=== PATIENT | female | born 1985 | race African-American/Black ===

== ENCOUNTER 2017-01-26 23:59 | Emergency (ER) | payer OTHER ==
[~2017-01-26 23:59] MED LIST: BACTRIM DS TABL1 TA1 PO; CIPRO PO; CLEOCIN PO; DARVOCET-N 1001 TAB PO; DIFLUCAN PO; FLEXERIL PO; FLEXERIL10 M1 PO; IBUPROFEN800 MG PO; K-DUR20 ME1 PO; KETOPROFEN PO; LEVAQUIN PO; LORTAB 5/500 TA1 TA1 PO; ORUDIS75 M1 DOB; PENCICLOVIR 1% TOP; ROBITUSSIN A-C-S1 ML PO; RONDEC-DM ORAL30 ML PO; VOLTAREN75 MG PO; ZANTAC PO; ZITHROMAX PO; ZITHROMAX1 G/PKT PO; ZOVIRAX800 MG PO
[2017-01-27 01:44] LABS: URINE SOURCE CLEAN CATCH
[2017-01-27 01:49] LABS: BASOPHIL% 0.6 % (0-2.5); EOSINOPHIL% 0.5 % (0.0-7.0); HEMATOCRIT 43.3 % (35.0-45.0); HEMOGLOBIN 14.4 gm/dL (12.0-16.0); LYMPHOCYTE% 35.8 % (17.0-45.0); MEAN CELL VOLUME 88.9 FL (83-96); MEAN CORPUSCULAR HEMOGLOBIN 29.5 PG (28-34); MEAN CORPUSCULAR HGB CONC 33.2 g/dL (30-36); MEAN PLATELET VOLUME 7.9 FL (6.5-11.5); MONOCYTE# 0.7 X10e3 (0-1.0); MONOCYTE% 8.2 % (3.0-12.0); NEUTROPHIL# 4.5 X10e3 (1.5-7.1); NEUTROPHIL% 54.9 % (40-75); PLATELET COUNT 339 X10e3 (140-420); RED BLOOD COUNT 4.87 X10e (3.90-5.30); RED CELL DISTRIBUTION WIDTH 12.4 % (11.0-15.5); WHITE BLOOD COUNT 8.3 X10e3 (4.0-10.5)
[2017-01-27 01:49] LABS: URINE APPEARANCE CLEAR; URINE BILIRUBIN NEG (NEG); URINE BLOOD NEG (NEG); URINE COLOR YELLOW; URINE GLUCOSE NEG (NEG); URINE KETONE 2+ (NEG); URINE LEUKOCYTE ESTERASE 1+ (NEG); URINE NITRATE NEG (NEG); URINE PH 8.5 (5-8); URINE PROTEIN NEG (NEG); URINE SPECIFIC GRAVITY 1.018 (1.003-1.035); URINE UROBILINOGEN 0.2 MG/DL (NEG)
[2017-01-27 01:52] LABS: CULTURE INDICATED? YES; U HYALINE CASTS AUWI 0-2 /[LPF]; URINE BACTERIA AUWI 1+ (NEGATIVE); URINE SQUAMOUS EPITHELIAL CELL OCC /[HPF]
[2017-01-27 01:55] LABS: DIFF IND NO
[2017-01-27 01:59] LABS: AMPHETAMINE NEG (NEG); BARBITURATES NEG (NEG); BENZODIAZEPINES NEG (NEG); COCAINE NEG (NEG); MARIJUANA NEG (NEG); OPIATES NEG (NEG); TRICYCLIC ANTIDEPRESSANTS NEG (NEG); U METHADONE NEG (NEG)
[2017-01-27 02:09] LABS: ALBUMIN SERUM 4.7 g/dL (3.5-5.0); ALKALINE PHOSPHATASE 58 U/L (32-92); ALT (SGPT) 15 U/L (10-40); AST (SGOT) 24 U/L (10-42); BILIRUBIN, DIRECT 0.3 mg/dL (0.0-0.2); BILIRUBIN,INDIRECT 0.8 mg/dL (0.0-0.9); BILIRUBIN,TOTAL 1.1 mg/dL (0.2-2.0); BLOOD UREA NITROGEN 13 mg/dL (9-23); BUN/CREATININE RATIO 16.25; CALCIUM SERUM 9.6 mg/dL (8.4-10.2); CARBON DIOXIDE 24 mmol/L (22-31); CHLORIDE 105 mmol/L (100-111); CREATININE SERUM 0.8 mg/dL (0.6-1.4); GLOM FILT RATE Estimated ABOVE60 mL/min (>60); GLUCOSE FASTING 86 mg/dL (70-110); POTASSIUM 4.1 mmol/L (3.5-5.1); PROTEIN TOTAL SERUM 8.4 g/dL (6.0-8.3); SODIUM 135 mmol/L (135-145)
== END 2017-01-27 03:00 | disposition home or self-care (01) ==
LOC: CED 23:59
PROVIDERS: Nurse Practitioner
DX: F41.9 Anxiety disorder, unspecified (principal); R42 Dizziness and giddiness; R11.0 Nausea; R20.2 Paresthesia of skin; I10 Essential (primary) hypertension; F17.210 Nicotine dependence, cigarettes, uncomplicated; Z79.899 Other long term (current) drug therapy; Z88.0 Allergy status to penicillin
CPT/HCPCS: 36415; 80048; 80076; 80307; 81003; 82947; 84703; 85025; 87086; 96361; 96374; 99284; J1200; J1885

== ENCOUNTER → 2017-04-14 | Outpatient (CLI) | payer OTHER ==
--- NOTE | ~2017-04-14 | MR134 ---
[facility] A Service of [facility] & [facility] RADIOLOGY TEXT RESULTS PATIENT: JOYCE BUTCHER LOCATION: CMRI : 86 UNIT #: [id number] AGE: [address]: Minh Guerra II, MD SEX: F ORDER DR: [id number] [facility] [address] [place], [place] [address] [id number] O MR#: [id number] Acc #: [id number] NAME: JOYCE BUTCHER : 1985 SEX: F STUDY DATE/TIME: 04/14/2017 16:15 UNIT: [facility] ROOM: STUDY DESCRIPTION: MR MRA Neck Wo Contrast Attending Physician: Minh Guerra II., M.D. Referring Physician: Minh Guerra II., M.D. Ordering Physician: Minh Guerra II., M.D. Primary Care Physician: Christine Rodríguez A.P.R.N. MRI CENTER REPORT This report is preliminary unless electronic signature is present. EXAM MR angiogram of the neck without contrast dated 04/14/2017 COMPARISON MRA head and MRI brain dated 04/14/2017 HISTORY Passing out since 07/2016. It has happened 4 to 5 times since then. Nausea, dizziness, numbness in hands and feet and around the mouth started on July 2016. FINDINGS Source and 3-D reconstructions MIP images of the neck arteries were obtained with and without contrast. Two vessel aortic arch is seen with common origin of the left common carotid artery with innominate artery. Bilateral common carotid arteries are unremarkable. There is mild heterogeneity of signal at the origin of bilateral ICA bulbs in the posterolateral aspect. There is no distal flow compromise. Bilateral external carotid arteries demonstrate no significant abnormality. Mild heterogeneity of signal is noted in the anterior aspect of the right ECA at its origin. Vertebral arteries demonstrate expected course, caliber and flow. They are codominant. No superimposed significant aneurysm or AVM is seen in the carotid or the vertebral arteries. IMPRESSION 1. There is mild heterogeneity of signal noted in biliary obstruction ICA bulbs along the posterior aspect and in the anterior aspect of the right external carotid artery at its origin. These are likely related to flow related turbulence. Mild atherosclerotic plaque is next in the differential consideration. 2. There is no hemodynamically flow-limiting significant stenosis in bilateral internal carotid artery bulbs per NASCET criteria. [facility]. [facility] A Service of [facility] & [facility] RADIOLOGY TEXT RESULTS PATIENT: JOYCE BUTCHER LOCATION: CMRI : 86 UNIT #: [id number] AGE: [address]: Minh Guerra II, MD SEX: F ORDER DR: 3. No dissection, aneurysm or AVM. Dictated by... Allyssa Lovett M.D. THIS IS AN ELECTRONICALLY VERIFIED REPORT Allyssa Lovett M.D. at 04/16/2017 4:26 PM CPR/rnr TD: 04/15/2017 14:11 JOB #: [id number] MRI CENTER REPORT Page 1 of 1 COPY
--- NOTE | ~2017-04-14 | MR122 ---
[facility] A Service of [facility] RADIOLOGY TEXT RESULTS PATIENT: JOYCE BUTCHER LOCATION: CMRI : 86 UNIT #: [id number] AGE: [address]: Minh Guerra II, MD SEX: F ORDER DR: [id number] [facility] [address] [place], [place] [address] [id number] O MR#: [id number] Acc #: [id number] NAME: JOYCE BUTCHER : 1985 SEX: F STUDY DATE/TIME: 04/14/2017 16:07 UNIT: [facility] ROOM: STUDY DESCRIPTION: MR MRA Head Wo Contrast Attending Physician: Minh Guerra II., M.D. Referring Physician: Minh Guerra II., M.D. Ordering Physician: Minh Guerra II., M.D. Primary Care Physician: Christine Rodríguez A.P.R.N. MRI CENTER REPORT This report is preliminary unless electronic signature is present. EXAM MR angiogram of the head without contrast dated 04/14/2017. COMPARISON MRI brain and MRA neck dated 04/14/2017. No prior MRA or CTA head studies. HISTORY Passing out since July 2016. It has happened 4-5 times so far. Nausea, dizziness, and numbness in hands and feet and around the mouth are noted which started in July 2016. FINDINGS Source and 3-D reconstruction MIP images of the [place] were obtained without contrast. Bilateral intracranial internal carotid arteries, anterior cerebral arteries, and middle cerebral arteries are within normal limits. Small ACom and slightly prominent bilateral PComs are noted. Basilar artery, bilateral posterior cerebral arteries, and proximal bilateral superior cerebellar arteries are within normal limits. Vertebral arteries demonstrate expected course, caliber, and flow. No aneurysm or AVM. IMPRESSION No aneurysm, AV malformations, or significant stenosis. Dictated by... Allyssa Lovett M.D. THIS IS AN ELECTRONICALLY VERIFIED REPORT Allyssa Lovett M.D. at 04/16/2017 4:26 PM [facility] A Service of [facility] & [facility] RADIOLOGY TEXT RESULTS PATIENT: JOYCE BUTCHER LOCATION: CMRI : 86 UNIT #: [id number] AGE: [address]: Minh Guerra II, MD SEX: F ORDER DR: Mariana TD: 04/15/2017 13:49 JOB #: [id number] MRI CENTER REPORT Page 1 of 1 COPY
--- NOTE | ~2017-04-14 | MR17 ---
[facility] A Service of [facility] RADIOLOGY TEXT RESULTS PATIENT: JOYCE BUTCHER [facility] UNIT #: [id number] AGE: [address]: Minh Guerra II, MD SEX: F ORDER DR: [id number] [place] [id number] [place], [place] [address] [id number] O MR#: [id number] Acc #: [id number] NAME: JOYCE BUTCHER : 1985 SEX: F STUDY DATE/TIME: 04/14/2017 15:45 UNIT: [facility] ROOM: STUDY DESCRIPTION: MR Brain WWo Contrast Attending Physician: Minh Guerra II., M.D. Referring Physician: Minh Guerra II., M.D. Ordering Physician: Minh Guerra II., M.D. Primary Care Physician: Christine Rodríguez A.P.R.N. MRI CENTER REPORT This report is preliminary unless electronic signature is present. EXAM MRI of the brain with and without contrast dated 04/14/2017 COMPARISON MRI of the brain with and without contrast dated 11/29/2012. HISTORY Patient has been passing out since July 2016, 4-5 times. Nausea, dizziness, numbness in hands and feet and around the mouth. Started in July 2016. TECHNIQUE Multi-sequence, multiplanar imaging of the brain was obtained with and without contrast. 15 mL of MultiHance was administered intravenously. FINDINGS No acute stroke, space-occupying intracranial mass, mass effect, midline shift, or hydrocephalus. Vascular flow voids of the major cerebral arteries and dural venous sinuses are not completely occluded in these thicker slices. Paranasal sinuses, orbits and the ocular structures, and mastoids are grossly unremarkable. Thick slices through the sella with the pituitary gland, pineal region, and upper cervical spine are grossly unremarkable. IMPRESSION Within normal limits. Dictated by... Allyssa Lovett M.D. THIS IS AN ELECTRONICALLY VERIFIED REPORT [facility] A Service of [facility] RADIOLOGY TEXT RESULTS PATIENT: JOYCE BUTCHER LOCATION: [facility] : 87 UNIT #: [id number] AGE: [address]: Minh Guerra II, MD SEX: F ORDER DR: Allyssa Lovett M.D. at 04/16/2017 4:26 PM CPR/aa TD: 04/15/2017 14:28 JOB #: [id number] MRI CENTER REPORT Page 1 of 1 COPY
== END | disposition home or self-care (01) ==
LOC: CMRI 15:16
DX: F32.9 Major depressive disorder, single episode, unspecified (principal); K83.1 Obstruction of bile duct
CPT/HCPCS: 70544; 70547; 70553; A9577